=== PATIENT | male | born 1975 | race African-American/Black ===

== ENCOUNTER 2017-04-08 21:35 | Emergency (ER) | payer MEDICAID, OTHER ==
[~2017-04-08] VITALS: Ht 175.3 cm; Wt 87.0 kg
[2017-04-09] MEDS ORDERED: TETANUS, DIPHTHERIA, PERTUSSIS VAC/PF 0.5ML (>7YR OLD) IM ONE (02:00)
[2017-04-09] MEDS ORDERED: SILVER SULFADIAZINE 1% CREAM 25GM TOP ONE (02:00)
[2017-04-09 02:54] VITALS: BP 147/80
== END 2017-04-09 02:58 | disposition home or self-care (01) ==
LOC: ER 21:35
DX: T22.212A Burn of second degree of left forearm, initial encounter (principal); X16.XXXA Contact with hot heating appliances, radiators and pipes, initial encounter; Y93.89 Activity, other specified; Y92.89 Other specified places as the place of occurrence of the external cause
CPT/HCPCS: 16020; 90471; 90715; 99284